=== PATIENT | male | born 1940 | race Caucasian/White ===

== ENCOUNTER 2019-04-15 20:57 | Emergency (ER) | payer MEDICARE, BC ==
[~2019-04-15] VITALS: Ht 172.7 cm; Wt 64.4 kg
[2019-04-15 21:51] LABS: BASOPHILS % (AUTO) 0.2 % (0.0-2.0); HEMATOCRIT 47.6 % (36.7-47.1); HEMOGLOBIN 16.3 g/dL (12.5-16.3); LYMPHOCYTES # (AUTO) 0.7 K/uL (20.0-40.0); LYMPHOCYTES % (AUTO) 6.7 % (20.5-51.5); MEAN CORPUSCULAR HEMOGLOBIN 33.1 uug (23.8-33.4); MEAN CORPUSCULAR HGB CONC 34 g/dL (32.5-36.3); MEAN CORPUSCULAR VOLUME 96.9 fL (73.0-96.2); MONOCYTES # (AUTO) 1.3 K/uL (2.0-10.0); MONOCYTES % (AUTO) 12.6 % (0.0-11.0); NEUTROPHILS # (AUTO) 8.4 K/uL (1.8-8.9); NEUTROPHILS % (AUTO) 80.5 % (38.5-71.5); PLATELET COUNT (AUTO) 186 K/uL (152-348); RED BLOOD CELL COUNT(AUTO) 4.91 MIL/uL (4.06-5.63); WHITE BLOOD COUNT (AUTO) 10.4 K/uL (3.6-10.2)
[2019-04-15 21:59] LABS: CREATININE 0.7 mg/dL (0.6-1.3)
[2019-04-15 22:08] LABS: BILIRUBIN,DIRECT 0.1 mg/dL (0.0-0.2); BILIRUBIN,TOTAL 0.5 mg/dL (0.2-1.0); TOTAL PROTEIN, SERUM 7.2 g/dL (6.4-8.2)
[2019-04-15] MEDS ORDERED: KETOROLAC TROMETHAMINE 60 MG INJ IM ONE ×2 (22:30→22:42)
[2019-04-15] MEDS ORDERED: IV NORMAL SALINE 250 ML IV ONE (23:30)
[2019-04-15] MEDS ORDERED: IOHEXOL 300MG/ML 100 ML INFUS..BTL ONE (23:30)
[2019-04-15] MEDS ORDERED: SWABABLE VALVE TRANSFER SET EA MC ONE (23:30)
--- NOTE | 2019-04-15 23:30 | NUR ---
Patient in room interactign with with no distress noted.
--- NOTE | 2019-04-16 01:35 | NUR ---
IV removed. Catheter intact and site benign. Pressure and 4x4 gauze applied to site. No bleeding noted.
--- NOTE | 2019-04-16 01:41 | NUR ---
Patient discharged to home in stable conditon with taking patient home. Written and verbal after care instructions given. Patient verbalizes understanding of instructions. Walked out of ER with no distress noted.
[2019-04-16 01:44] VITALS: BP 155/85
== END 2019-04-16 01:45 | disposition home or self-care (01) ==
LOC: ER 20:59
DX: S29.011A Strain of muscle and tendon of front wall of thorax, initial encounter (principal); Z79.82 Long term (current) use of aspirin; Z79.899 Other long term (current) drug therapy; W01.0XXA Fall on same level from slipping, tripping and stumbling without subsequent striking against object, initial encounter; Y93.89 Activity, other specified; Y92.89 Other specified places as the place of occurrence of the external cause; Y99.8 Other external cause status
CPT/HCPCS: 36415; 71045; 71101; 71275; 80048; 80076; 82550; 84484; 85025; 85730; 86850; 86900; 86901; 93005; 96372; 99285; J1885; Q9967; 70030-TC; A4663; J7050